=== PATIENT | male | born 1970 | race African-American/Black ===

== ENCOUNTER → 2025-01-25 | Outpatient (BNVA) | payer MEDICARE, MEDICAID, SELFPAY | END | disposition home or self-care (01) | PROVIDERS: PCP Nurse Practitioner Family; Referring Provider Nurse Practitioner Family; Visit Provider Urology | DX: R35.0 Frequency of micturition (principal); F84.0 Autistic disorder; I10 Essential (primary) hypertension | CPT/HCPCS: 99212; G0463 ==